=== PATIENT | male | born 1995 | race Caucasian/White ===

== ENCOUNTER 2017-12-03 19:30 | Emergency (ER) | payer SELFPAY ==
[~2017-12-03] VITALS: Ht 182.9 cm; Wt 114.8 kg
[2017-12-03 19:49] VITALS: Ht 182.9 cm; Wt 114.8 kg
[2017-12-03 20:42] VITALS: BP 150/86
[2017-12-03 20:57] LABS: PLATELET COUNT 266 x10^3mcL (130-400); RED CELL DISTRIBUTION WIDTH 13.4 % (11.5-14.5)
[2017-12-03 21:16] LABS: CALCIUM 9.3 mg/dL (8.5-10.1); CARBON DIOXIDE 26.6 mmol/L (21-32); CHLORIDE SERUM 103 mmol/L (98-107); GFR1 > 60 mL/min; GLUCOSE SERUM 92 mg/dL (74-106); MAGNESIUM 2.1 mg/dL (1.8-2.4); POTASSIUM SERUM 3.8 mmol/L (3.5-5.1); SODIUM SERUM 141 mmol/L (136-145)
== END 2017-12-03 22:04 | disposition home or self-care (01) ==
LOC: ED 19:30
PROVIDERS: Emergency Medicine
DX: R00.2 Palpitations (principal); R42 Dizziness and giddiness; R11.0 Nausea; R07.9 Chest pain, unspecified
CPT/HCPCS: 36415; Q0092